=== PATIENT | female | born 1945 | race Caucasian/White ===

== ENCOUNTER 2016-12-30 09:15 | Emergency (ER) | payer OTHER ==
[~2016-12-30] VITALS: Ht 165.1 cm; Wt 78.0 kg
[~2016-12-30 09:15] MED LIST: ASPEC325 PO; FRRG PO; IMMODIUM PO; NAPR220T PO
[2016-12-30 09:18] VITALS: TEMP 36.3; Ht 165.1 cm; Wt 78.0 kg
[2016-12-30 10:04] LABS: BASO % 0.2 %; BASO ABS # 0.02 K/uL (0-0.2); COMPLETE YES; EOS % 0.2 %; HEMATOCRIT 45.6 % (37-47); IG% 0.1 %; LYMPH % 2.5 %; LYMPH ABS # 0.22 K/uL (1.2-3.4); MEAN CELL VOLUME 90.1 fL (80-100); MEAN CORPUSCULAR HEMOGLOBIN 30.8 pg (25-34); MEAN CORPUSCULAR HGB CONC 34.2 g/dl (32-36); MEAN PLATELET VOLUME 10.5 fL (7.4-10.4); MONO % 2.4 %; NEUT % 94.6 %; PLATELET COUNT 202 K/uL (130-400); RED BLOOD COUNT 5.06 M/uL (4.2-5.4); WHITE BLOOD COUNT 8.91 K/uL (4.8-10.8)
[2016-12-30] MEDS ORDERED: KETOROLAC TROMETHAMINE 30 MG/ML VIAL IV STA (10:11)
[2016-12-30] MEDS ORDERED: ONDANSETRON INJ 2 MG/ML 2 ML VIAL IV STA (10:11)
[2016-12-30] MEDS ORDERED: SODIUM CHLORIDE 0.9% 1000ML 1,000 ML IV STA (10:11)
[2016-12-30 10:14] LABS: URINE APPEARANCE CLOUDY (CLEAR); URINE BILIRUBIN NEG (NEG); URINE COLOR DK YELLOW; URINE EPITHELIAL CELL AUTO >30 /lpf (0-5); URINE NITRITE NEG (NEG); URINE SPECIFIC GRAVITY 1.025 (1.000-1.030); UROBILINOGEN NEG (NEG); ZZUR CULT IF INDIC CLEAN CATCH NO
[2016-12-30 10:18] LABS: MANUAL MICROSCOPIC REQUIRED? NO; REVIEW REQ? NO
[2016-12-30 10:22] LABS: BUN/CREATININE RATIO 25.5 (10-20); CALCIUM 9.8 mg/dl (8.5-10.1); CREATININE 0.92 mg/dl (0.60-1.20); POTASSIUM 4.5 mmol/L (3.5-5.1)
[2016-12-30 10:25] LABS: ALB/GLOB RATIO 1.2 (0.9-2)
--- NOTE | 2016-12-30 12:04 | EMERGENCY ROOM VISIT NOTE ---
History Report prepared by Latanya: Jesus Preston Under the Supervision of: Dr. Otis Puente D.O. First contact with patient: 10:07 Chief Complaint: DIARRHEA Stated Complaint: DIARRHEA Nursing Triage Summary: pt to the ED with c/o n/v/d with lower abd pain that goes into the middle of her back History of Present Illness The patient is a 71 year old female who presents to the Emergency Room with complaints of persistent vomiting for the past 2.5 days. The patient has had about 2-3 episodes of vomiting per day, however she did not vomit so far this morning. She has also had diarrhea that usually occurs at night. The patient started to experience a headache as well as abdominal pain and back pain today. She did not eat today. The patient still has her gallbladder and appendix. She is s/p x 3. The patient has a history of irritable bowel syndrome. Source of History: patient Onset: 2.5 days ago Position: other (GI) Quality: other (vomiting) Timing: other (persistent) Associated Symptoms: + abdominal pain, + back pain, + diarrhea, + headache, + nausea Review of Systems See HPI for pertinent positives & negatives. A total of 10 systems reviewed and were otherwise negative. Past Medical & Surgical Medical Problems: (1) Irritable bowel syndrome (2) Left Hip DJD Surgical Problems: (1) Previous section Family History No significant family history Social History Smoking Status: Never Smoker Marital Status: Housing Status: lives with family Occupation Status: employed Current/Historical Medications Scheduled PRN Naproxen Sodium (Aleve), 220 MG PO for Pain Allergies Coded Allergies: No Known Allergies (Verified , 02/10/16) Physical Exam Vital Signs Date Time Temp Pulse Resp B/P Pulse Ox O2 Delivery O2 Flow Rate FiO2 12/30/16 11:19 95 16 145/84 95 12/30/16 09:18 36.3 86 18 116/75 97 Room Air Physical Exam CONSTITUTIONAL/VITAL SIGNS: Reviewed / noted above. GENERAL: Non-toxic in appearance. INTEGUMENTARY: Warm, dry, and [place]. HEAD: Normocephalic. EYES: without scleral icterus or trauma. ENT/OROPHARYNX: clear and moist. LYMPHADENOPATHY/NECK: Is supple without lymphadenopathy or meningismus. RESPIRATORY: Lungs clear and equal. CARDIOVASCULAR: Regular rate and rhythm. GI/ABDOMEN: Soft. Mild diffuse tenderness. No organomegaly or pulsatile mass. No rebound or guarding. Normal bowel sounds. EXTREMITIES: Warm and well perfused. BACK: No CVA tenderness. NEUROLOGICAL: Intact without focal deficits. PSYCHIATRIC: normal affect. MUSCULOSKELETAL: Normally developed with good muscle tone. Medical Decision & Procedures Laboratory Results 12/30/16 09:45 Red Blood Count 5.06, Mean Corpuscular Volume 90.1, Mean Corpuscular Hemoglobin 30.8, Mean Corpuscular Hemoglobin Concent 34.2, Mean Platelet Volume 10.5, Neutrophils (%) (Auto) 94.6, Lymphocytes (%) (Auto) 2.5, Monocytes (%) (Auto) 2.4, Eosinophils (%) (Auto) 0.2, Basophils (%) (Auto) 0.2, Neutrophils # (Auto) 8.43, Lymphocytes # (Auto) 0.22, Monocytes # (Auto) 0.21, Eosinophils # (Auto) 0.02, Basophils # (Auto) 0.02 12/30/16 09:45 Test 12/30/16 09:45 12/30/16 09:55 White Blood Count 8.91 K/uL (4.8-10.8) Red Blood Count 5.06 M/uL (4.2-5.4) Hemoglobin 15.6 g/dL (12.0-16.0) Hematocrit 45.6 % (37-47) Mean Corpuscular Volume 90.1 fL (80-100) Mean Corpuscular Hemoglobin 30.8 pg (25-34) Mean Corpuscular Hemoglobin Concent 34.2 g/dl (32-36) Platelet Count 202 K/uL (130-400) Mean Platelet Volume 10.5 fL (7.4-10.4) Neutrophils (%) (Auto) 94.6 % Lymphocytes (%) (Auto) 2.5 % Monocytes (%) (Auto) 2.4 % Eosinophils (%) (Auto) 0.2 % Basophils (%) (Auto) 0.2 % Neutrophils # (Auto) 8.43 K/uL (1.4-6.5) Lymphocytes # (Auto) 0.22 K/uL (1.2-3.4) Monocytes # (Auto) 0.21 K/uL (0.11-0.59) Eosinophils # (Auto) 0.02 K/uL (0-0.5) Basophils # (Auto) 0.02 K/uL (0-0.2) RDW Standard Deviation 43.1 fL (36.4-46.3) RDW Coefficient of Variation 13.2 % (11.5-14.5) Immature Granulocyte % (Auto) 0.1 % Immature Granulocyte # (Auto) 0.01 K/uL (0.00-0.02) Anion Gap 8.0 mmol/L (3-11) Est Creatinine Clear Calc Drug Dose 56.2 ml/min Estimated GFR () 71.6 Estimated GFR (Non- 61.8 BUN/Creatinine Ratio 25.5 (10-20) Calcium Level 9.8 mg/dl (8.5-10.1) Total Bilirubin 0.9 mg/dl (0.2-1) Aspartate Amino Transf (AST/SGOT) 22 U/L (15-37) Alanine Aminotransferase (ALT/SGPT) 24 U/L (12-78) Alkaline Phosphatase 97 U/L (45-117) Total Protein 8.2 gm/dl (6.4-8.2) Albumin 4.4 gm/dl (3.4-5.0) Globulin 3.8 gm/dl (2.5-4.0) Albumin/Globulin Ratio 1.2 (0.9-2) Lipase 87 U/L (73-393) Urine Color DK YELLOW Urine Appearance CLOUDY (CLEAR) Urine pH 5.0 (4.5-7.5) Urine Specific [place] 1.025 (1.000-1.030) Urine Protein NEG (NEG) Urine Glucose (UA) NEG (NEG) Urine Ketones NEG (NEG) Urine Occult Blood 2+ (NEG) Urine Nitrite NEG (NEG) Urine Bilirubin NEG (NEG) Urine Urobilinogen NEG (NEG) Urine Leukocyte Esterase TRACE (NEG) Urine WBC (Auto) 1-5 /hpf (0-5) Urine RBC (Auto) 5-10 /hpf (0-4) Urine Hyaline Casts (Auto) 5-10 /lpf (0-5) Urine Epithelial Cells (Auto) >30 /lpf (0-5) Urine Bacteria (Auto) NEG (NEG) Laboratory results as stated above per my review. Medications Administered Medications (Trade) Dose Ordered Sig/Tianna Route Start Time Stop Time Status Last Admin Dose Admin Sodium Chloride (Nss 1000ml) 1,000 ml @ 999 mls/hr Q1H1M STAT IV 12/30/16 10:11 12/30/16 11:11 DC 12/30/16 10:39 999 MLS/HR Ketorolac Tromethamine (Toradol Inj) 30 mg NOW STAT IV 12/30/16 10:11 12/30/16 10:12 DC 12/30/16 10:43 30 MG Ondansetron HCl (Zofran Inj) 4 mg NOW STAT IV 12/30/16 10:11 12/30/16 10:12 DC 12/30/16 10:40 4 MG ED Course 1007: Previous medical records were reviewed. The patient was evaluated in room C3. A complete history and physical examination was performed. 1011: Zofran 4 mg IV, Toradol 30 mg IV, NSS 1000 ml @ 999 mls/hr. 1205: Reassessed the patient. Discussed the discharge instructions with her. She verbalized understanding. The patient is ready for discharge. Medical Decision Differential diagnosis: Etiologies such as gastroenteritis, food borne illness, infections, appendicitis , diverticulitis, inflammatory bowel disease, obstruction, GI bleed, biliary pathology, as well as others were entertained. This is a 71-year-old female who presents to the ED with a chief complaint of diarrhea. She states that she has had vomiting and diarrhea for the past 2-1/2 days. She states that it has been 3-4 times per day. She is not had any today. She has no other complaints. She thought she might be dehydrated. Her vital signs are normal. Physical exam did not reveal any significant or focal. CBC and complete metabolic panel were unremarkable. BUN is 24. Urine did not show infection. Patient was hydrated with IV fluids. She was given IV fluids and IV Zofran as well as IV Toradol for some discomfort in her back and abdomen from vomiting. She was told results and felt stable for discharge. Impression Primary Impression: Nausea vomiting and diarrhea Additional Impression: Musculoskeletal pain Scribe Attestation The scribe's documentation has been prepared under my direction and personally reviewed by me in its entirety. I confirm that the note above accurately reflects all work, treatment, procedures, and medical decision making performed by me. Departure Information Dispostion Home / Self-Care Referrals No Doctor, Assigned (PCP) Forms HOME CARE DOCUMENTATION FORM, IMPORTANT VISIT INFORMATION, WORK / SCHOOL INSTRUCTIONS Patient Instructions My [facility] Additional Instructions Follow-up with your doctor for further care and evaluation in 1-2 days. Return to the emergency department for worsening or new symptoms or any concerns. You have been examined and treated today on an emergency basis only. This is not a substitute for, or an effort to provide, complete comprehensive medical care. It is impossible to recognize and treat all injuries or illnesses in a single emergency department visit. It is therefore important that you follow up closely with your doctor. Call as soon as possible for an appointment. Problem Qualifiers
[2016-12-30 12:12] VITALS: BP 146/69; PULSE 90; O2SAT 98
== END 2016-12-30 12:13 | disposition home or self-care (01) ==
LOC: C.EDB 09:19 → C.EDC 12:13
DX: R11.2 Nausea with vomiting, unspecified (principal); R19.7 Diarrhea, unspecified; M79.1 Myalgia; K58.9 Irritable bowel syndrome, unspecified; M16.12 Unilateral primary osteoarthritis, left hip

== ENCOUNTER 2017-10-23 11:03 | Emergency (ER) | payer OTHER ==
[~2017-10-23] VITALS: Ht 167.6 cm; Wt 79.1 kg
[~2017-10-23 11:03] MED LIST changes: -ASPEC325 PO; -FRRG PO; -IMMODIUM PO
[2017-10-23 11:08] VITALS: TEMP 36.4; Ht 167.6 cm; Wt 79.1 kg
[2017-10-23] MEDS ORDERED: CHOLESTEROL PILL PO (11:56)
[2017-10-23 12:05] LABS: BASO % 1.2 %; BASO ABS # 0.07 K/uL (0-0.2); EOS % 5.4 %; EOS ABS # 0.32 K/uL (0-0.5); HEMATOCRIT 41.7 % (37-47); HEMOGLOBIN 14.1 g/dL (12.0-16.0); IG# 0.01 K/uL (0.00-0.02); LYMPH ABS # 1.67 K/uL (1.2-3.4); MEAN CORPUSCULAR HEMOGLOBIN 30.8 pg (25-34); MEAN CORPUSCULAR HGB CONC 33.8 g/dl (32-36); MONO % 6.2 %; MONO ABS # 0.37 K/uL (0.11-0.59); NEUT ABS # 3.53 K/uL (1.4-6.5); PLATELET COUNT 200 K/uL (130-400); RED CELL DISTRIBUTION WIDTH SD 42.6 fL (36.4-46.3); WHITE BLOOD COUNT 5.97 K/uL (4.8-10.8)
[2017-10-23 12:17] LABS: ALBUMIN 3.9 gm/dl (3.4-5.0); ALT/SGPT 23 U/L (12-78); AST/SGOT 18 U/L (15-37); BLOOD UREA NITROGEN 14 mg/dl (7-18); CALCIUM 9.2 mg/dl (8.5-10.1); CARBON DIOXIDE 28 mmol/L (21-32); GLUCOSE 98 mg/dl (70-99); LIPASE 164 U/L (73-393); SODIUM 136 mmol/L (136-145)
[2017-10-23 12:19] LABS: ALKALINE PHOSPHATASE 93 U/L (45-117); TOTAL PROTEIN 7.4 gm/dl (6.4-8.2)
--- NOTE | 2017-10-23 12:55 | DIAGNOSTIC IMAGING REPORT ---
CT OF THE ABDOMEN AND PELVIS WITHOUT CONTRAST, STONE PROTOCOL CLINICAL HISTORY: Left flank pain. Evaluate for stone. COMPARISON STUDY: CT of the abdomen and pelvis May 11, 2015. TECHNIQUE: Helical axial images of the abdomen and pelvis were obtained without IV or oral contrast according to renal stone protocol. A dose lowering technique was utilized adhering to the principles of ALARA. FINDINGS: Visualized portions of the lower chest demonstrate a 2.6 x 1.2 cm oval-shaped lesion which contains small cystic spaces within the medial basilar segment of the right lower lobe. There is a punctate right renal calculus. The left collecting system is duplicated. There are no ureteral calculi and there is no hydronephrosis. Unenhanced images of the liver, spleen, adrenal glands and pancreas are unremarkable. 2 splenules are present. There is left colon diverticulosis without evidence for acute diverticulitis. There are few calcified uterine fibroid. Left hip arthroplasty is noted. There is no pneumatosis, free air or portal venous gas. No ascites is present. A few water attenuation left renal lesions were shown to reflect cysts on prior contrast enhanced study of June 02, 2016. IMPRESSION: 1. 2.6 x 1.2 cm oval shaped solid right lower lobe pulmonary lesion which contains small cystic spaces. A slow-growing neoplasm is the diagnosis of exclusion. Pulmonary consultation is recommended. Findings discussed with Dr. Fisher at time of dictation. 2. Punctate right renal calculus. No ureteral calculi or hydronephrosis. 3. Colonic diverticulosis without evidence for acute diverticulitis. Electronically signed by: Jose Finney M.D. 10/23/2017 12:53 PM Dictated Date/Time: 10/23/2017 12:41 PM
--- NOTE | 2017-10-23 12:57 | DIAGNOSTIC IMAGING REPORT ---
LUMBAR SPINE WITHOUT CLINICAL HISTORY: Left flank/left back pain. COMPARISON STUDY: No previous studies for comparison. FINDINGS: The CT of the abdomen and pelvis will be reported separately. Alignment of the lumbar spine is anatomic. Vertebral body heights are maintained. There is no acute lumbar spine fracture or subluxation. No suspicious osseous lesion is present. Central canal and neural foramen are suboptimally assessed by CT. However, there is no evidence for significant central canal stenosis by CT. No disc herniation is identified by CT. Mild multilevel neural foraminal stenosis is noted. IMPRESSION: 1. No acute lumbar spine fracture or subluxation. 2. Mild multilevel degenerative disc disease of the lumbar spine. Moderate multilevel facet arthrosis. No significant central canal stenosis. Mild multilevel neural foraminal stenosis. No disc herniation by CT. Electronically signed by: Jose Finney M.D. 10/23/2017 12:56 PM Dictated Date/Time: 10/23/2017 12:53 PM
--- NOTE | 2017-10-23 13:49 | DIAGNOSTIC IMAGING REPORT ---
CHEST 2 VIEWS ROUTINE CLINICAL HISTORY: Left-sided chest pain. Evaluate for mass. COMPARISON STUDY: Chest radiograph December 19, 2015. FINDINGS: Lung volumes are normal. No pneumothorax or pleural effusion is present. There is no evidence of pulmonary edema. Cardiac size is at the upper limits of normal. Minimal left basilar opacity favors atelectasis. A 2.4 x 1.6 cm right lower lobe oval shaped density corresponds to the finding shown on abdominal CT performed earlier today. IMPRESSION: 1. 2.4 x 1.6 cm oval-shaped right lower lobe nodule. While indeterminate, a slow-growing neoplasm is the diagnosis of exclusion. Nonemergent pulmonary consultation is recommended. 2. No acute cardiopulmonary findings. Electronically signed by: Jose Finney M.D. 10/23/2017 1:47 PM Dictated Date/Time: 10/23/2017 1:45 PM
[2017-10-23 14:03] VITALS: BP 183/118; PULSE 65; O2SAT 98
--- NOTE | 2017-10-23 16:29 | EMERGENCY ROOM VISIT NOTE ---
History Report prepared by Latanya: Aleksandra King Under the Supervision of: Dr. Heraclio Fisher M.D. First contact with patient: 11:13 Chief Complaint: FLANK PAIN Stated Complaint: PAIN IN LEFT SIDE History of Present Illness The patient is a 72 year old female who presents to the Emergency Room with complaints of persistent left flank pain starting this morning. The pain started suddenly. She describes the pain as sharp. The pain does not wrap around to the front. She feels like she cannot get comfortable. She denies any chest pain, SOB, fever, vomiting, black stools, bloody stools, hematuria, or difficulty urinating. She denies any fall. She denies any history of kidney stones. She denies any history of hypertension, but notes that her blood pressure is high at times. She has chronic diarrhea from IBS. Source of History: patient Onset: this morning Position: other (left flank) Quality: sharp Timing: other (persistent) Associated Symptoms: No fevers, No chest pain, No SOB, No vomiting, No melena, No hematochezia, No urinary symptoms Review of Systems See HPI for pertinent positives & negatives. A total of 10 systems reviewed and were otherwise negative. Past Medical & Surgical Medical Problems: (1) Irritable bowel syndrome (2) Left Hip DJD Surgical Problems: (1) Previous section Family History No significant family history Social History Smoking Status: Never Smoker Marital Status: Housing Status: lives with family Occupation Status: retired Current/Historical Medications Scheduled [Cholesterol Pill], 1 TAB PO DAILY Allergies Coded Allergies: No Known Allergies (Verified , 10/23/17) Physical Exam Vital Signs Date Time Temp Pulse Resp B/P (MAP) Pulse Ox O2 Delivery O2 Flow Rate FiO2 10/23/17 14:03 65 18 183/118 98 Room Air 10/23/17 12:37 59 18 162/96 98 Room Air 10/23/17 11:08 36.4 67 16 165/85 97 Room Air Physical Exam Constitutional: Vital signs reviewed. Eyes: Pupils are equal round reactive to light. Conjunctiva are noninjected. ENT: Pharynx is clear without erythema or exudate. Mucous membranes are moist. Neck supple without meningeal signs. Respiratory: Clear to auscultation bilaterally. Breath sounds are equal bilaterally. Cardiovascular: Regular rate and rhythm. No rubs or gallops. GI: Soft, nondistended and nontender. Bowel sounds are present. Musculoskeletal: No peripheral edema. No CVA tenderness. No midline tenderness to the thoracic or lumbosacral spine. Integumentary: No cyanosis. Neurological: The patient is awake and alert. No focal deficits. Psychiatric: Normal affect. Medical Decision & Procedures ER Provider Diagnostic Interpretation: X-ray results as stated below per interpretation by me and the radiologist. Radiology results as stated below per my review and the radiologist's interpretation: CHEST 2 VIEWS ROUTINE CLINICAL HISTORY: Left-sided chest pain. Evaluate for mass. COMPARISON STUDY: Chest radiograph December 19, 2015. FINDINGS: Lung volumes are normal. No pneumothorax or pleural effusion is present. There is no evidence of pulmonary edema. Cardiac size is at the upper limits of normal. Minimal left basilar opacity favors atelectasis. A 2.4 x 1.6 cm right lower lobe oval shaped density corresponds to the finding shown on abdominal CT performed earlier today. IMPRESSION: 1. 2.4 x 1.6 cm oval-shaped right lower lobe nodule. While indeterminate, a slow-growing neoplasm is the diagnosis of exclusion. Nonemergent pulmonary consultation is recommended. 2. No acute cardiopulmonary findings. Electronically signed by: Jose Finney M.D. 10/23/2017 1:47 PM Dictated Date/Time: 10/23/2017 1:[address] OF THE ABDOMEN AND PELVIS WITHOUT CONTRAST, STONE PROTOCOL CLINICAL HISTORY: Left flank pain. Evaluate for stone. COMPARISON STUDY: CT of the abdomen and pelvis May 11, 2015. TECHNIQUE: Helical axial images of the abdomen and pelvis were obtained without IV or oral contrast according to renal stone protocol. A dose lowering technique was utilized adhering to the principles of ALARA. FINDINGS: Visualized portions of the lower chest demonstrate a 2.6 x 1.2 cm oval-shaped lesion which contains small cystic spaces within the medial basilar segment of the right lower lobe. There is a punctate right renal calculus. The left collecting system is duplicated. There are no ureteral calculi and there is no hydronephrosis. Unenhanced images of the liver, spleen, adrenal glands and pancreas are unremarkable. 2 splenules are present. There is left colon diverticulosis without evidence for acute diverticulitis. There are few calcified uterine fibroid. Left hip arthroplasty is noted. There is no pneumatosis, free air or portal venous gas. No ascites is present. A few water attenuation left renal lesions were shown to reflect cysts on prior contrast enhanced study of June 02, 2016. IMPRESSION: 1. 2.6 x 1.2 cm oval shaped solid right lower lobe pulmonary lesion which contains small cystic spaces. A slow-growing neoplasm is the diagnosis of exclusion. Pulmonary consultation is recommended. Findings discussed with Dr. Fisher at time of dictation. 2. Punctate right renal calculus. No ureteral calculi or hydronephrosis. 3. Colonic diverticulosis without evidence for acute diverticulitis. Electronically signed by: Jose Finney M.D. 10/23/2017 12:53 PM Dictated Date/Time: 10/23/2017 12:41 PM LUMBAR SPINE WITHOUT CLINICAL HISTORY: Left flank/left back pain. COMPARISON STUDY: No previous studies for comparison. FINDINGS: The CT of the abdomen and pelvis will be reported separately. Alignment of the lumbar spine is anatomic. Vertebral body heights are maintained. There is no acute lumbar spine fracture or subluxation. No suspicious osseous lesion is present. Central canal and neural foramen are suboptimally assessed by CT. However, there is no evidence for significant central canal stenosis by CT. No disc herniation is identified by CT. Mild multilevel neural foraminal stenosis is noted. IMPRESSION: 1. No acute lumbar spine fracture or subluxation. 2. Mild multilevel degenerative disc disease of the lumbar spine. Moderate multilevel facet arthrosis. No significant central canal stenosis. Mild multilevel neural foraminal stenosis. No disc herniation by CT. Electronically signed by: Jose Finney M.D. 10/23/2017 12:56 PM Dictated Date/Time: 10/23/2017 12:53 PM Laboratory Results 10/23/17 11:39 Red Blood Count 4.58, Mean Corpuscular Volume 91.0, Mean Corpuscular Hemoglobin 30.8, Mean Corpuscular Hemoglobin Concent 33.8, Mean Platelet Volume 10.0, Neutrophils (%) (Auto) 59.0, Lymphocytes (%) (Auto) 28.0, Monocytes (%) (Auto) 6.2, Eosinophils (%) (Auto) 5.4, Basophils (%) (Auto) 1.2, Neutrophils # (Auto) 3.53, Lymphocytes # (Auto) 1.67, Monocytes # (Auto) 0.37, Eosinophils # (Auto) 0.32, Basophils # (Auto) 0.07 10/23/17 11:39 Test 10/23/17 11:28 10/23/17 11:39 Urine Color YELLOW Urine Appearance CLEAR (CLEAR) Urine pH 5.0 (4.5-7.5) Urine Specific [place] 1.011 (1.000-1.030) Urine Protein NEG (NEG) Urine Glucose (UA) NEG (NEG) Urine Ketones NEG (NEG) Urine Occult Blood NEG (NEG) Urine Nitrite NEG (NEG) Urine Bilirubin NEG (NEG) Urine Urobilinogen NEG (NEG) Urine Leukocyte Esterase TRACE (NEG) Urine WBC (Auto) 1-5 /hpf (0-5) Urine RBC (Auto) 0-4 /hpf (0-4) Urine Hyaline Casts (Auto) 0 /lpf (0-5) Urine Epithelial Cells (Auto) >30 /lpf (0-5) Urine Bacteria (Auto) NEG (NEG) White Blood Count 5.97 K/uL (4.8-10.8) Red Blood Count 4.58 M/uL (4.2-5.4) Hemoglobin 14.1 g/dL (12.0-16.0) Hematocrit 41.7 % (37-47) Mean Corpuscular Volume 91.0 fL (80-100) Mean Corpuscular Hemoglobin 30.8 pg (25-34) Mean Corpuscular Hemoglobin Concent 33.8 g/dl (32-36) Platelet Count 200 K/uL (130-400) Mean Platelet Volume 10.0 fL (7.4-10.4) Neutrophils (%) (Auto) 59.0 % Lymphocytes (%) (Auto) 28.0 % Monocytes (%) (Auto) 6.2 % Eosinophils (%) (Auto) 5.4 % Basophils (%) (Auto) 1.2 % Neutrophils # (Auto) 3.53 K/uL (1.4-6.5) Lymphocytes # (Auto) 1.67 K/uL (1.2-3.4) Monocytes # (Auto) 0.37 K/uL (0.11-0.59) Eosinophils # (Auto) 0.32 K/uL (0-0.5) Basophils # (Auto) 0.07 K/uL (0-0.2) RDW Standard Deviation 42.6 fL (36.4-46.3) RDW Coefficient of Variation 13.0 % (11.5-14.5) Immature Granulocyte % (Auto) 0.2 % Immature Granulocyte # (Auto) 0.01 K/uL (0.00-0.02) Anion Gap 5.0 mmol/L (3-11) Est Creatinine Clear Calc Drug Dose 58.2 ml/min Estimated GFR () 73.0 Estimated GFR (Non- 63.0 BUN/Creatinine Ratio 15.9 (10-20) Calcium Level 9.2 mg/dl (8.5-10.1) Total Bilirubin 0.5 mg/dl (0.2-1) Direct Bilirubin < 0.1 mg/dl (0-0.2) Aspartate Amino Transf (AST/SGOT) 18 U/L (15-37) Alanine Aminotransferase (ALT/SGPT) 23 U/L (12-78) Alkaline Phosphatase 93 U/L (45-117) Total Protein 7.4 gm/dl (6.4-8.2) Albumin 3.9 gm/dl (3.4-5.0) Lipase 164 U/L (73-393) Laboratory results as reviewed by me. ED Course 1119: The patient was evaluated in room C4. A complete history and physical exam was performed. 1320: I reevaluated the patient. She does not have any pain unless she twists her trunk to the left. I discussed the test results with her in detail. She continues to denies SOB or chest pain. 1354: I reevaluated the patient. I discussed slime's findings with her. She verbalized agreement of the treatment plan. She was discharged home. Medical Decision This is a 72-year-old female presents with left-sided flank pain starting this morning. Differential diagnosis includes strain, kidney stone, UTI, pyelonephritis, intervertebral disc disease. I did perform a limited focused review of portions of the patient's old chart on the electronic medical record. The patient has had no recent pertinent visits to this hospital. I did evaluate the patient as noted above. The patient is having pain to her left flank. It started this morning. She does not wish to have any pain medicines. IV access was established. I did order and personally review the patient's urine analysis as described above. There is no evidence of hematuria or significant infection. I did order and review the patient's blood work as noted in the electronic medical record. Blood work is unremarkable. I did order a CT of the abdomen and pelvis. I did review the images myself as well as the radiology report as described above. The patient has a right-sided kidney stone but does not have any left-sided stones. She does have a right- sided pulmonary mass. She denies any history of smoking. She denies any chest pain or shortness of breath. On reexamination she states the pain is almost gone unless she moves around such as twisting to the left side. She doesn't have any significant pain if she stays still. I did recommend she follow closely with her doctor. She will discuss the CT results and get reevaluated. She was discharged in good condition. Medication Reconcilliation Current Medication List: was personally reviewed by me Blood Pressure Screening Patient's blood pressure: Elevated blood pressure Blood pressure disposition: Referred to PCP Impression Primary Impression: Left flank pain Additional Impression: Mass of right lung Scribe Attestation The scribe's documentation has been prepared under my direct and personally reviewed by me in its entirety. I confirm that the note above accurately reflects all work, treatment, procedures, and medical decision making performed by me. Departure Information Dispostion Home / Self-Care Referrals Blanca Gramajo M.D. Forms HOME CARE DOCUMENTATION FORM, IMPORTANT VISIT INFORMATION Patient Instructions ED Flank Pain Uncertain Cause, My [facility] Additional Instructions You have been examined and treated today on an emergency basis only. This is not a substitute for, or an effort to provide, complete comprehensive medical care. It is impossible to recognize and treat all injuries or illnesses in a single emergency department visit. It is therefore important that you follow up closely with your physician. Call as soon as possible for an appointment. Talk to your doctor about the mass found on your right lung for further workup. Return for worsening symptoms or if you develop fever, vomiting, chest pain, shortness of breath or any other concerning symptoms. Problem Qualifiers
== END 2017-10-23 14:20 | disposition home or self-care (01) ==
LOC: C.EDB 11:04 → C.EDC 14:20
DX: R10.9 Unspecified abdominal pain (principal); R91.8 Other nonspecific abnormal finding of lung field; N20.0 Calculus of kidney; K58.9 Irritable bowel syndrome, unspecified; R03.0 Elevated blood-pressure reading, without diagnosis of hypertension

== ENCOUNTER → 2017-12-21 | Outpatient (CLI) | payer OTHER ==
[~2017-12-21] MED LIST changes: +CHOLESTEROL PILL PO; -NAPR220T PO
--- NOTE | 2017-12-21 09:43 | DIAGNOSTIC IMAGING REPORT ---
MRI OF THE BRAIN WITHOUT CONTRAST CLINICAL HISTORY: MEMORY LOSS DIZZINESS, HEADACHES. COMPARISON STUDY: Noncontrast head CT dated 02/20/2013 FINDINGS: Sagittal T1, axial diffusion, proton density and T2 weighted axial, coronal FLAIR, and axial T1-weighted images were acquired. No intra or extra-axial mass lesions are visualized Axial diffusion-weighted images reveal no evidence of acute or subacute infarction. There is no evidence of ventricular dilatation. Proton density T2-weighted and FLAIR images reveal moderate foci of increased T2 signal within the white matter, likely on a small vessel basis. There are no abnormal flow voids. IMPRESSION: 1. No acute intracranial findings 2. No evidence of acute or subacute infarction 3. No evidence of intracranial mass on this noncontrast study 4. Moderate foci of increased T2 and FLAIR signal within the white matter, likely on a small vessel ischemic basis Electronically signed by: Prosper Lehman M.D. 12/21/2017 9:41 AM Dictated Date/Time: 12/21/2017 9:40 AM
== END | disposition home or self-care (01) ==
LOC: C.MRI 08:42
PROVIDERS: ATTEND Family Medicine
DX: R41.3 Other amnesia (principal)